=== PATIENT | female | born 1995 | race Caucasian/White ===

== ENCOUNTER 2020-01-30 12:24 | Inpatient (IN) | payer OTHER, SELFPAY ==
[2020-01-30] MEDS ORDERED: OXYTOCIN 30 UNITS IN 0.9% NaCl 500ML IV BAG (J2590) As Ordered ONE (14:07)
[2020-01-30] MEDS ORDERED: FENTANYL 2MCG/ML ROPIVACAINE 0.2% IN 0.9% NACL 100ML IVBAG As Ordered ONE (19:20)
[2020-01-30] MEDS ORDERED: ePHEDrine SULFATE 25 MG/5 ML(5MG/ML) SYRINGE As Ordered ONE (20:54)
[2020-01-31] MEDS ORDERED: ACETAMINOPHEN 325 MG TAB As Ordered ONE (03:20)
[2020-01-31] MEDS ORDERED: IBUPROFEN 800 MG TAB As Ordered ONE (03:20)
[2020-01-31] MEDS ORDERED: ACETAMINOPHEN TAB 650MG DOSE (2X325MG) As Ordered ONE ×2 (09:03→16:45)
[2020-01-31] MEDS ORDERED: MOM 30ML SUSPENSION UDC As Ordered ONE (21:13)
[2020-02-01] MEDS ORDERED: ACETAMINOPHEN TAB 650MG DOSE (2X325MG) As Ordered ONE (12:02)
[2020-03-18 15:03] LABS: HEMATOCRIT 31.4 % (36.0-47.0); HEMOGLOBIN 10.1 g/dl (12.0-15.5); MEAN CORPUSCULAR HEMOGLOBIN 25.8 pg (27.0-33.0); MEAN CORPUSCULAR HGB CONC 32.2 g/dl (32.0-36.5); MEAN CORPUSCULAR VOLUME 80.1 fl (80.0-96.0); PLATELET COUNT, AUTOMATED 216 10^3/uL (150-450); RED BLOOD COUNT 3.92 10^6/uL (4.00-5.40); WHITE BLOOD COUNT 10.5 10^3/uL (4.0-10.0)
[2020-03-28 22:37] LABS: BLOOD UREA NITROGEN 7 MG/DL (7-18); CALCIUM LEVEL 8.7 MG/DL (8.5-10.1); CARBON DIOXIDE LEVEL 24 MEQ/L (21-32); CHLORIDE LEVEL 107 MEQ/L (98-107); GLOMERULAR FILTRATION RATE > 60.0 (>60); GLUCOSE, FASTING 83 MG/DL (70-100); POTASSIUM SERUM 3.8 MEQ/L (3.5-5.1); SODIUM LEVEL 137 MEQ/L (136-145)
== END 2020-02-01 08:10 | disposition home or self-care (01) | DRG 807 ==
LOC: M LDI 12:24
PROC: 3E033VJ Introduction of Other Hormone into Peripheral Vein, Percutaneous Approach (ICD-10-PCS; 2020-01-30)
PROC: 10907ZC Drainage of Amniotic Fluid, Therapeutic from Products of Conception, Via Natural or Artificial Opening (ICD-10-PCS; 2020-01-30)
PROC: 10E0XZZ Delivery of Products of Conception, External Approach (ICD-10-PCS; principal; 2020-01-31)
DX: O26.00 Excessive weight gain in pregnancy, unspecified trimester (principal); Z37.0 Single live birth; Z3A.39 39 weeks gestation of pregnancy

== ENCOUNTER → 2020-06-06 | Outpatient (CLI) | payer SELFPAY | LOC: M LABSMTC 13:14 | PROVIDERS: ATTEND Pediatrics | DX: Z20.828 Contact with and (suspected) exposure to other viral communicable diseases (principal) ==

== ENCOUNTER 2020-09-08 15:29 | Emergency (ER) | payer OTHER, SELFPAY ==
[~2020-09-08] VITALS: Ht 149.9 cm; Wt 72.4 kg
[2020-09-08] MEDS ORDERED: anxiety med (15:36)
[2020-09-08 16:20] LABS: BASO # 0.1 10^3/uL (0.0-0.2); BASO % 1.1 % (0.0-1.0); EOS # 0.2 10^3/uL (0.0-0.5); EOS % 3.4 % (0.0-3.0); HEMOGLOBIN 12.7 g/dl (12.0-15.5); LYMPH # 2.3 10^3/uL (1.5-5.0); LYMPH % 35.6 % (24.0-44.0); MEAN CORPUSCULAR HEMOGLOBIN 29.7 pg (27.0-33.0); MEAN CORPUSCULAR HGB CONC 33.4 g/dl (32.0-36.5); MEAN CORPUSCULAR VOLUME 88.8 fl (80.0-96.0); MONO # 0.5 10^3/uL (0.0-0.8); MONO % 8.2 % (2.0-8.0); NEUTROPHILS # 3.3 10^3/uL (1.5-8.5); NEUTROPHILS % 51.5 % (36.0-66.0); PLATELET COUNT, AUTOMATED 203 10^3/uL (150-450); RED BLOOD COUNT 4.28 10^6/uL (4.00-5.40); WHITE BLOOD COUNT 6.4 10^3/uL (4.0-10.0)
[2020-09-08 16:50] LABS: ALT/SGPT 15 U/L (12-78); BILIRUBIN,TOTAL 0.2 MG/DL (0.2-1.0); BLOOD UREA NITROGEN 8 MG/DL (7-18); CALCIUM LEVEL 8.8 MG/DL (8.5-10.1); CARBON DIOXIDE LEVEL 28 MEQ/L (21-32); CHLORIDE LEVEL 107 MEQ/L (98-107); CREATININE FOR GFR 0.68 MG/DL (0.55-1.30); GLOMERULAR FILTRATION RATE > 60.0 (>60); GLUCOSE, FASTING 95 MG/DL (70-100); LIPASE 107 U/L (73-393); SODIUM LEVEL 140 MEQ/L (136-145); TOTAL PROTEIN 6.9 GM/DL (6.4-8.2)
[2020-09-08] MEDS ORDERED: KETOROLAC 30 MG/ML 1ML VIAL IV ONE (17:40)
[2020-09-08] MEDS ORDERED: ACETAMINOPHEN 500 MG TAB PO ONE (17:40)
--- NOTE | 2020-09-08 18:15 | REP ---
INDICATION: lower abd/pelvic pain/pressure, h/o ovarian cyst, endometrio. COMPARISON: None. TECHNIQUE: Transabdominal scanning was performed. Patient declined transvaginal imaging.. FINDINGS: Uterine dimensions are normal at 7.9 x 4.3 x 6.4 cm. Endometrial echo is 1.2 cm thick and centrally placed. No free fluid is seen in the cul-de-sac. Visualized bladder gould are smooth. No focal uterine mass lesion is seen. The right ovary has dimensions of 3.1 x 2.7 x 2.4 cm. It's Doppler flow is normal with a resistive index of 0.50. There is a 1.6 cm slightly complex follicle cyst in the right ovary. The left ovary dimensions are normal as well at 3.0 x 1.8 x 2.2 cm. It's Doppler flow was normal with resistive index of 0.61. IMPRESSION: Normal pelvic sonography. Small slightly complex follicle cyst right ovary. <Electronically signed by Britton Morley > 09/08/20 [id number]
[2020-09-08] MEDS ORDERED: KETOROLAC TROMETHAMINE 10 MG TAB PO ONE (18:25)
[2020-09-08] MEDS ORDERED: IBUP80TA PO (19:15)
[2020-09-08 19:17] VITALS: BP 141/83
== END 2020-09-08 19:22 | disposition home or self-care (01) ==
LOC: M ED 15:29
DX: N83.201 Unspecified ovarian cyst, right side (principal); R10.9 Unspecified abdominal pain; N80.9 Endometriosis, unspecified; G43.909 Migraine, unspecified, not intractable, without status migrainosus; G89.29 Other chronic pain; M54.5 Low back pain; F41.9 Anxiety disorder, unspecified; F17.290 Nicotine dependence, other tobacco product, uncomplicated; Z88.8 Allergy status to other drugs, medicaments and biological substances; Z79.899 Other long term (current) drug therapy